=== PATIENT | female | born 1985 | race Caucasian/White ===

== ENCOUNTER → 2024-05-17 | Outpatient (CLI) | payer MEDICAID, SELFPAY ==
--- NOTE | 2024-05-17 13:48 | XR_ITS ---
Examination: Hand, left 3 views Technique: Hand AP, oblique, lateral 3 views Date and time of exam: May 17, 2024 1356 hours INDICATIONS: Hand pain beginning one month ago. FINDINGS: Moderate juxta-articular bone demineralization. No fracture or dislocation. No erosive or other significant arthritic change. No opaque foreign bodies IMPRESSION: Moderate juxta-articular bone demineralization No erosive or other significant arthritic change
== END | disposition home or self-care (01) ==
PROVIDERS: PCP Family Medicine
DX: M89.8X4 Other specified disorders of bone, hand (principal)
CPT/HCPCS: 73130